=== PATIENT | female | born 1945 | race Caucasian/White ===

== ENCOUNTER → 2017-05-01 | Outpatient (CLI) | payer OTHER ==
[~2017-05-01] MED LIST: ACP20 PO; ALBU0.5N2 NEB; ALBU1AER9 INH; AMX500 PO; ATV5 PO; CLC100 PO; DEXTSYP41 PO; DYZ PO; FBR PO; FRN PO; HYDR-5688 PO; LACT3000 PO; LINA1CAP2 PO; MELO7.5T5 PO; METO25TA56 PO; MONT1TAB3 PO; MULT-614 PO; SYN75 PO
== END | disposition home or self-care (01) ==
LOC: C.PATHSPEC 09:54
PROVIDERS: ATTEND Dermatology
DX: L57.0 Actinic keratosis (principal)

== ENCOUNTER → 2017-07-17 | Outpatient (CLI) | payer OTHER ==
--- NOTE | 2017-07-17 12:56 | DIAGNOSTIC IMAGING REPORT ---
THREE-PHASE NUCLEAR BONE SCAN OF THE THE KNEES CLINICAL HISTORY: Left knee pain. COMPARISON STUDY: Radiographs of left knee dated 11/30/2015 TECHNIQUE: Following the IV administration of 26.9 mCi of technetium 99m MDP, three-phase bone scan of the the knees was performed. Flow and blood pool imaging was obtained both anteriorly and posteriorly. Bone phase imaging of both knees was performed at three hours in multiple obliquities. Note that interpretation is suboptimal without current plain film correlate. FINDINGS: There is mild hyperemia involving the left knee seen on both the flow and blood pool phase images. This is greatest around the distal femur. On the bone phase images a photopenic defect is consistent with a left knee arthroplasty. There is abnormally increased tracer seen within the distal femur around the arthroplasty as well as within the tibial plateau. Mild and typically degenerative activity is seen in the right knee. IMPRESSION: 1. Three-phase positive bone scan of the left knee as detailed above. The appearance is nonspecific and this could represent infection or possibly fracture in the appropriate clinical setting. Aseptic loosening is a differential consideration although the hyperemia on the flow and blood pool phase imaging is atypical. Clinical correlation will be essential. 2. There is mild and typically degenerative activity noted in the right knee. Electronically signed by: Rosendo Sabillon M.D. 07/17/2017 12:55 PM Dictated Date/Time: 07/17/2017 12:52 PM
== END | disposition home or self-care (01) ==
LOC: C.NUCL 09:03
PROVIDERS: ATTEND Pain Medicine Interventional Pain Medicine
DX: Z96.652 Presence of left artificial knee joint (principal); R93.7 Abnormal findings on diagnostic imaging of other parts of musculoskeletal system

== ENCOUNTER → 2017-10-19 | Outpatient (CLI) | payer OTHER | END | disposition home or self-care (01) | LOC: C.PATHSPEC 17:03 | PROVIDERS: ATTEND Dermatology | DX: L82.1 Other seborrheic keratosis (principal) ==

== ENCOUNTER 2020-03-24 10:00 | Observation (INO) ==
--- NOTE | 2020-03-24 11:23 | History & Physical Bridge Note ---
Date of Service March 24, 2020 History & Physical Bridge Note I have examined the patient, reviewed the History & Physical and in the interval since the performance of the History & Physical I have noted the following changes of clinical significance: no changes noted
--- NOTE | 2020-03-24 11:23 | Pre Anesthesia Assessment ---
Date of Service March 24, 2020 Pre Sedation Assessment Vital Signs Temp Pulse Resp BP Pulse Ox 03/24/20 10:46 36.7 C 62 20 145/68 H 96 Cardiovascular RRR, no murmur, no edema Respiratory normal respiratory effort, lungs clear to auscultation Pre-Sedation Airway Assessment Smoking Status: Never smoker Hx Sleep Apnea: No Short, Thick Neck: No Thyromental Distance: > or= 3.5 Finger Breadths Oral Cavity: + WNL Mallampati Class: II ASA: ASA2 NPO Status Date of Last Intake of Fluids: 03/24/20 Time of Last Intake of Fluids: 05:00 Date of Last Intake of Solid Food: 03/23/20 Time of Last Intake of Solid Foods: 22:00 Procedure Planning Contraindications for Sedation: none Current Medications Reviewed: Yes Notes The planned sedation has been discussed with the patient. Informed Consent was obtained. I have identified the patient, determined the appropriateness of sedation and have assessed the patient immediately prior to the procedure. All medicine(s) and interventions are by my order.
[2020-03-24] MEDS ORDERED: BUPIVACAINE 0.5 % 5 MG/1 ML PF 10ML VIAL ONE (11:27)
[2020-03-24] MEDS ORDERED: BACITRACIN INJ 50,000 UNIT VIAL ONE (11:27)
[2020-03-24] MEDS ORDERED: LIDOCAINE HCL 1% 20 ML VIAL ONE (11:27)
[2020-03-24] MEDS ORDERED: CEFAZOLIN 250 MG/ML 1 GM VIAL ONE (11:29)
[2020-03-24] MEDS ORDERED: fentaNYL citrate 100 MCG/2 ML VIAL ONE (11:29)
[2020-03-24] MEDS ORDERED: MIDAZOLAM HCL 5 MG/ML 1 ML VIAL ONE (11:29)
[2020-03-24] MEDS ORDERED: DiphenhydrAMINE HCL 50 MG/ML VIAL ONE (11:59)
[2020-03-24] MEDS ORDERED: methylPREDNISolone 125 MG/2 ML VIAL ONE (11:59)
[2020-03-24] MEDS ORDERED: ACETAMINOPHEN 325 MG TAB PO PRN (12:41)
[2020-03-24] MEDS ORDERED: METOPROLOL SUCC 25MG EXT REL TAB PO SCH (12:45)
[2020-03-24] MEDS ORDERED: LORazepam 0.5 MG TAB PO PRN (15:06)
[2020-03-24] MEDS: OXYCODONE/ACETAMINOPHEN 5mg/325mg TAB PO PRN ×2 (15:42→23:20)
[2020-03-24] MEDS ORDERED: OXYCODONE/ACETAMINOPHEN 5mg/325mg TAB PO ONE (16:01)
[2020-03-24] MEDS: METOPROLOL TARTRATE 25 MG TAB PO SCH (20:14)
[2020-03-24] MEDS ORDERED: MONTELUKAST SODIUM 10 MG TABLET PO SCH (21:00)
[2020-03-24] MEDS ORDERED: DOCUSATE SODIUM 100 MG CAP PO SCH (21:00)
[2020-03-25] MEDS ORDERED: LEVOTHYROXINE SODIUM 75 MCG TABLET PO SCH (06:30)
--- NOTE | 2020-03-25 06:40 | XRay Report ---
XR chest 2V PA/lateral HISTORY: 75 years-old Female post ppm status post placement of a left subclavian pacer COMPARISON: Chest radiograph 08/13/2015 TECHNIQUE: PA and lateral views of the chest FINDINGS: Limited lateral view secondary to left upper extremity positioning. Cardiomediastinal and hilar silho uettes are within normal limits. Nipple shadows project over the lung bases. Mild chronic interstitia l coarsening with possible emphysema. Hyperinflation. Pleural thickening of the lung apices. No pneum othorax, pleural effusion or overt pulmonary edema. Left subclavian pacer is noted with leads overlyi ng the expected locations of the right atrium and right ventricle. The leads appear intact. Bones ann ear grossly intact. IMPRESSION: Status post placement of a left subclavian pacer. No postprocedural pneumothorax. ACT 112: Negative or not required by law. The above report was generated using voice recognition software. It may contain grammatical, syntax o r spelling errors. Electronically signed by: Torin Odom M.D. 03/25/2020 6:38 AM
[2020-03-25] MEDS: OXYCODONE/ACETAMINOPHEN 5mg/325mg TAB PO PRN (07:43)
[2020-03-25] MEDS: METOPROLOL TARTRATE 25 MG TAB PO SCH (07:48)
[2020-03-25 07:51] LABS: Creatinine Clr Calc Pharmacy 36.3 ml/min; Est GFR (African American) 60.4; Est GFR (Non-African American) 52.1
[2020-03-25] MEDS ORDERED: APIXABAN 2.5 MG TAB PO SCH (09:00)
--- NOTE | 2020-03-25 15:02 | Discharge Summary ---
Date of Service March 25, 2020 Admission HPI Per Admitting Provider Pt admitted for elective ppm Admission Exam Per Admitting Provider aaox3, NAD NC/AT, EOMI Supple No JVD Nrl S1/S2, No murmur CTA b/l no w/r/r soft nt/nd no LE edema b/l skin intact no focal deficits Principal Diagnosis TBS s/p dual chamber ppm Discharge Exam aaox3, NAD NC/AT, EOMI Supple No JVD Nrl S1/S2, No murmur CTA b/l no w/r/r soft nt/nd no LE edema b/l skin intact no focal deficits left pectoral incision intact, no hematoma mild ecchymosis Discharge Data Allergies Allergy/AdvReac Type Severity Reaction Status Date / Time acetaminophen Allergy Unknown "THICK Verified 08/18/16 14:14 TONGUE, UNABLE TO VOID" codeine Allergy Unknown "THICK Verified 08/18/16 14:14 TONGUE, UNABLE TO VOID" Iodinated Contrast Media Allergy Unknown RED RASH Verified 08/18/16 14:14 lactose Allergy Unknown GI upset Verified 08/18/16 14:14 levofloxacin Allergy Unknown PAIN,SWELLING Verified 08/18/16 14:14 IN JOINTS Procedures Performed Operation Date: 03/24/20 11:00 Actual Procedures p Pacer with A/V Leads (Dual) - Emely Ramirez DO Ordered Studies CXR: No PTX, leads in position ECG: SR Pacemaker Interrogation: Normal function and stable lead testing since implant 03/24/20 11:37 CL Cath Imgs for PACS use only Stat Hospital Course (1) Tachy-evelyn syndrome: (2) PAF (paroxysmal atrial fibrillation): Total Time Total Time Spent Total Time Spent (In Minutes): 40 Total Time Includes: Examination of the Patient, Discharge Planning, Medication Reconciliation and Other Discharge Plan Discharge Items Patient Disposition: Home - Self-Care Reason For Visit: DUAL CHAMBER PACER IMPLANT Discharge Diagnosis: TBS s/p dual chamber ppm Condition on Discharge: Good Activity: As commented below Activity Comment: do not lift the left elbow over the left shoulder for 1 month Lifting: No more than 10 pounds Lifting Comment: do not lift more than 10 pounds with the left arm for 2 weeks Bathing: Keep incision dry Bathing Comment: keep dressing on and dry until wound check next week Sexual Activity: After two weeks Non-emergency contact: [employer] Call non-emergency contact if: you have any medication questions Follow-up/Referrals: Justin Mcnamara MD [Primary Care Provider] - 04/01/20 10:40 am () Diet: Heart Healthy Addtl Attending Provider Instructions: Device and wound check at [facility] on 03/31/2020 at 11am if you notice any swelling at the device region call [facility] immediately Start Eliquis 2.5mg (so a half a tab as I sent in a 5mg tab to your local pharmacy and your mail away pharmacy through [facility] system) by mouth 2x a day Pending Studies at Discharge: No Stand-Alone Forms: My [facility] Medications and DC Order Prescriptions: Continued Butalbital/Asa/Caffeine (Fiorinal *) tablet 1 tab PO DIRECTED Qty: 0 RF: 0 Calcium Polycarbophil (Fibercon *) 1 CAP CAPLET 1 tab PO BID Qty: 0 RF: 0 Docusate Sodium (Colace *) 100 MG capsule 100 mg PO HS Qty: 0 RF: 0 Levothyroxine (Synthroid *) 0.075 MG tablet 0.075 mg PO QAM Qty: 0 RF: 0 Lorazepam (Ativan *) 0.5 MG tablet 0.5 mg PO TID PRN (Reason: PRN) Qty: 0 RF: 0 Rabeprazole Sodium (Aciphex *) 20 MG [id number] 20 mg PO QPM Qty: 0 RF: 0 Triamterene/Hctz (Dyazide 37.5MG/25MG *) capsule 1 cap PO QAM Qty: 0 RF: 0 Amoxicillin (Amoxil *) 500 MG capsule 2,000 mg PO PRN Qty: 21 RF: 0 Albuterol (Proair Hfa) AEROSOL,SOLN 2 puff Inhalation QID PRN (Reason: PRN) Qty: 0 RF: 0 MONTELUKAST SODIUM (SINGULAIR) 10 MG tablet 10 mg PO QPM Qty: 0 RF: 0 Metoprolol Tartrate (Lopressor) (Lopressor) 25 MG tablet 25 mg PO BID Qty: 0 RF: 0 LINACLOTIDE (LINZESS) 290 MCG capsule 290 mcg PO QAM Qty: 0 RF: 0 LACTASE (LACTAID) 3,000 UNIT tablet 1 tab PO DAILY PRN (Reason: PRN) Qty: 0 RF: 0 Albuterol 0.5% Soln (Ventolin 0.5% Soln) NEBULIZR-SOLN 1 vial NEB Q4 PRN (Reason: Shortness of Breath) Qty: 0 RF: 1 Guaifenesin/Dextromethorphan (Robitussin-Dm Syrup) syrup 5 ml PO TID PRN (Reason: Cough) Qty: 0 RF: 0 MULTIPLE VITAMINS W/ MINERALS (CENTRUM SILVER ULTRA WOME) 1 TAB tablet PO DAILY Qty: 0 RF: 0 Hydrocodone/Acetaminophen 5MG/325MG (Palmetto 5MG/325MG) tablet 1 tab PO TID PRN (Reason: prn) 30 Days Qty: 90 RF: 0 Meloxicam (Mobic) 7.5 MG tablet 7.5 mg PO DAILY Qty: 0 RF: 0 Discharge Orders: Discharge Order (Routine); Ordered 03/25/20 Ordered By: Emely Ramirez Admission Data Admit Date/Time: 03/24/20 12:22 Attending Provider: Emely Ramirez Admit Provider: Emely Ramirez Primary Care Provider: Justin Mcnamara Other Interventions: Discharge Summary Assessment (RN) Last Done: 03/25/20 09:25 DC Date/Time DO NOT enter until pt leaves facility: 03/25/20 10:14
--- NOTE | 2020-03-26 05:46 | Electrocardiogram Report ---
Test Reason : Blood Pressure : / mmHG Vent. Rate : 065 BPM Atrial Rate : 065 BPM P-R Int : 188 ms QRS Dur : 082 ms QT Int : 424 ms P-R-T Axes : 054 042 038 degrees QTc Int : 440 ms Normal sinus rhythm Normal ECG When compared with ECG of 04-SEP-2011 14:08, No significant change was found Confirmed by Froy Sylvester ([id number]) on 03/26/2020 5:46:06 AM Referred By: Emely Ramirez Confirmed By:Froy Sylvester
--- NOTE | 2020-03-26 09:53 | Operative Report (OR) ---
DATE OF OPERATION: 03/24/2020 PREOPERATIVE DIAGNOSIS: Tachybrady syndrome. POSTOPERATIVE DIAGNOSIS: Tachybrady syndrome. PROCEDURE: Dual chamber rate responsive permanent pacemaker under fluoroscopic guidance along with peripheral venogram. SURGEON: Emely Ramirez DO. [employer]OL[employer] MECHANIC: None. ANESTHESIA: Monitored conscious sedation administered under my supervision by Larry Escalante. Start time 11:45, end time 12:39. Total of 4 mg of Versed, 100 mcg of fentanyl. INTRAVENOUS FLUIDS: 27 mL. BLOOD LOSS: 10 mL. ANTIBIOTICS: 1 gram of Ancef. ADDITIONAL MEDICINES: 25 mg of Benadryl and 125 mg of Solu-Medrol. COMPLICATIONS: None. CONDITION: Stable. URINE OUTPUT: Not applicable. SPECIMENS: None. FINDINGS: See below. DRAINS: None. INDICATIONS: This is a 75-year-old female with past medical history of hypertension, chronic kidney disease stage III. She wore Zio patch secondary to near syncopal episodes, found to have paroxysmal atrial fibrillation with a CHADS2-VASc score of 4 as well as long conversion pauses, so with the evidence of tachybrady syndrome, she was recommended a pacemaker. CONSENT: Consent was obtained prior to the patient going into the electrophysiology lab. The patient was informed of risks, benefits and alternative procedure. Risks include but not limited to sudden cardiac , cardiac arrhythmias, cerebrovascular accident, myocardial infarction, injury to the blood vessels, chamber of the heart, lung, bleeding, and infection. The patient understood these risks and agreed with procedure as planned. Informed consent was obtained. DESCRIPTION OF THE PROCEDURE: The patient was brought into the electrophysiology lab in fasting state. She was connected to continuous cardiac monitoring. Timeout was performed to ensure patient identity and procedure correctly. The patient was prepped and draped over the left ventricular space in normal surgical standard fashion. She received prophylactic antibiotics prior to incision. Monitored conscious sedation was given throughout the procedure for patient's comfort level. [place] precautions maintained throughout the procedure. A 20 mL 1% lidocaine, bupivacaine mixture were given in the left deltopectoral groove. Incision was made in left deltopectoral groove. Blunt dissection performed to identify cephalic vein; however, it was too small to use so peripheral axillary access was obtained through a needlestick without any problems. Guidewire was inserted without any difficulty. An 8-Kenyan sheath was inserted over the guidewire without any resistance. The dilator was removed and a second 8-Kenyan sheath was then inserted through this sheath to allow for retained venous access. Sheath was removed, flushed, dilator reinserted over it and then was reinserted over one of the guidewires. Guidewire and dilator were removed. Then, the right ventricular lead was advanced into right ventricle and positioned in intraventricular apex under fluoroscopic guidance. There was adequate pacing and sensing thresholds and no diaphragmatic stimulation with high output pacing. The 8-Kenyan sheath was peeled away and lead was fixated to pectoralis muscle using 0 silk suture. A second 8-Kenyan sheath was inserted over the retained guidewire without any resistance. Guidewire and dilator removed. The right atrial lead was advanced into right atrium and positioned interatrial appendage under fluoroscopic guidance. There was adequate pacing and sensing thresholds and no diaphragmatic stimulation in high output pacing. The 8-Kenyan sheath was peeled away and lead was fixated to pectoralis muscle using 0 silk suture. A pacemaker pocket was created using blunt dissection over the pectoralis muscle within the pectoralis fascia. Pocket was flushed with copious amounts of bacitracin saline wash and inspected for hemostasis. Pulse generator was then attached to leads making sure that the pins were in appropriate position, passed set screw and set screws were all tightened. Pulse generator was placed in the pocket, making sure that the leads were lying flat beneath the device. A stay stitch using 0 silk suture was used to secure the pectoralis muscle. The incision was closed in 3-layer fashion using 2-0 Vicryl interrupted suture followed by 3-0 Vicryl interrupted suture followed by 4-0 Monocryl running stitch and Dermabond was applied followed by Telfa and micropore dressing. I placed a pursestring around the venous puncture site to prevent any backbleeding using a 2-[address] needle. EQUIPMENT: 1. Pulse generator is a [employer] [place] XT DR TIFFANIE Bond [id number], serial number [id number]. 2. Right atrial lead Medtronic 5076-52 cm, serial number [id number]. 3. Left ventricular lead, Medtronic 5076-58 cm, serial number [id number]. INTRAOPERATIVE TESTIN. Right atrial lead: P waves 1.4 millivolts, impedance 817 ohms, threshold 1.4 volts at 0.4 milliseconds. 2. Right ventricular lead: R-wave 5.4 millivolts, impedance 684 ohms, threshold 0.9 volts at 0.4 milliseconds. FINAL MEASUREMENTS THROUGH THE DEVICE: 1. Right atrial lead: P waves 2.1 millivolts, impedance 874 ohms, threshold 1.25 volts at 0.4 milliseconds. 2. Right ventricular lead: R waves 5 millivolts, impedance 684 ohms, threshold 0.75 volts at 0.4 milliseconds. FINAL PARAMETERS: MVP-R 60/130, right atrial amplitude 3.5 volts, pulse width 0.4 milliseconds, sensitivity 0.3 millivolts. Right ventricular amplitude 3.5 volts, pulse width 0.4 milliseconds, sensitivity 1.2 millivolts. IMPRESSION: Successful implantation of a dual chamber rate responsive permanent pacemaker under fluoroscopic guidance along with peripheral venogram secondary to tachybrady syndrome. PLAN: Monitor patient overnight, 12-lead ECG, chest x-ray. She is not allowed to lift left elbow or left shoulder for 1 month. She cannot lift more than 10 pounds with the left arm. She is to leave the dressing on and dry until her wound check next week. We will start her on Eliquis 2.5 twice a day and she can continue her metoprolol for now. I attest to the content of the Intraoperative Record and any orders documented therein. Any exception s are noted below.
== END 2020-03-25 10:14 | disposition home or self-care (01) ==
LOC: 2S 10:00 → EP 10:00